=== PATIENT | male | born 1985 | race Caucasian/White ===

== ENCOUNTER 2018-09-09 22:38 | Emergency (ER) | END 2018-09-10 07:42 | disposition home or self-care (01) ==

== ENCOUNTER 2019-04-04 01:35 | Emergency (ER) | payer BC, OTHER ==
[~2019-04-04] VITALS: Ht 175.3 cm; Wt 72.3 kg
[2019-04-04 01:42] VITALS: BP 140/86; PULSE 92; RESP 18; Ht 175.3 cm; Wt 72.3 kg
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
[2019-04-04] MEDS ORDERED: DIPHTH/TET/ACEL PERTUSS (ADULT) 0.5 ML VIAL IM* ONE (04:30)
[2019-04-04] MEDS ORDERED: IBUP800T48 PO (04:54)
[2019-04-04] MEDS ORDERED: CEPH-443 PO (04:54)
[2019-04-04] MEDS ORDERED: ACET500C5 PO (04:54)
== END 2019-04-04 04:59 | disposition home or self-care (01) ==
LOC: FTE 01:35
DX: S50.351A Superficial foreign body of right elbow, initial encounter (principal); F17.210 Nicotine dependence, cigarettes, uncomplicated; F11.10 Opioid abuse, uncomplicated; M79.9 Soft tissue disorder, unspecified; X58.XXXA Exposure to other specified factors, initial encounter; Y92.9 Unspecified place or not applicable; Z23 Encounter for immunization
CPT/HCPCS: 73070; 90471; 90715; 93971